=== PATIENT | female | born 1965 | race Caucasian/White ===

== ENCOUNTER 2017-06-26 17:06 | Emergency (ER) | payer MEDICARE, MEDICAID ==
[2017-06-26 17:34] VITALS: RESP 24
[2017-06-26] MEDS ORDERED: MORPHINE SULFATE 10 MG/ML SOL IV ONE (17:57)
[2017-06-26] MEDS ORDERED: ONDANSETRON HCL 4 MG/2 ML SOL IV ONE (17:59)
[2017-06-26] MEDS ORDERED: CLINDAMYCIN 150 MG/ML 900 MG in SODIUM CHLORIDE 0.9% 100 ML 100 ML IV ONE (18:16)
[2017-06-26] MEDS ORDERED: ERTAPENEM SODIUM 1 GM PDS ONE (18:27)
[2017-06-26] MEDS ORDERED: MORPHINE SULFATE 10 MG/ML SOL ONE (18:27)
[2017-06-26] MEDS ORDERED: SODIUM CHLORIDE 0.9% 1000ML 1,000 ML IV ONE (18:36)
[2017-06-26 18:45] LABS: BASOPHILS % (AUTO) 1 % (0-3); EOSINOPHILS % (AUTO) 1 % (0-9); HEMATOCRIT 34 % (35-47); MEAN CORPUSCULAR HGB CONC 30.9 gm/dl (32.0-36.0); MONOCYTES % (AUTO) 9.7 % (0-12); NEUTROPHILS % (AUTO) 78.8 % (37-80)
[2017-06-26 18:46] LABS: MEAN CORPUSCULAR VOLUME 69 fL (81-99)
[2017-06-26] MEDS ORDERED: ONDANSETRON HCL 4 MG/2 ML SOL ONE (18:47)
[2017-06-26 18:52] VITALS: TEMP 97.3
[2017-06-26 18:53] LABS: ALBUMIN 2.6 gm/dl (3.4-5.0); ALT 11 IU/L (14-63); CALCIUM 9.1 mg/dl (8.5-10.1); GLOM FILT RATE 75 mL/min (>60); POTASSIUM 4.4 mMol/L (3.5-5.1); SODIUM 132 mMol/L (136-145)
[2017-06-26] MEDS ORDERED: CLINDAMYCIN 150 MG/ML SOL ONE (18:56)
[2017-06-26 19:07] LABS: ANISOCYTOSIS MOD AMT
[2017-06-26 19:08] LABS: TARGET CELLS PRESENT
[2017-06-26] MEDS ORDERED: VANCOMYCIN HCL 500 MG PDS 1,500 MG in SODIUM CHLORIDE 0.9% 250 ML 250 ML IV SCH (19:15)
[2017-06-26] MEDS ORDERED: VANCOMYCIN HYDROCHLORIDE 500 MG PDS IV ONE (19:31)
[2017-06-26 19:40] LABS: APPEARANCE,URINE Clear; BILIRUBIN,URINE NEGATIVE (NEGATIVE); COLOR,URINE Yellow; GLUCOSE, URINE (UA) NEGATIVE (NEGATIVE); KETONES,URINE NEGATIVE (NEGATIVE); LEUKOCYTE ESTERASE ,URINE NEGATIVE (NEGATIVE); NITRATE,URINE NEGATIVE (NEGATIVE); OCCULT BLOOD,URINE TRACE LYSED (NEG-TRACE); PH,URINE 5.5
[2017-06-26 19:45] LABS: RBC,URINE 0-2 (0-3AV/HPF); WBC,URINE 0-2 (0-5AV/HPF)
[2017-06-26 20:21] VITALS: BP 106/56; PULSE 67; O2SAT 97
[2017-06-27] MEDS ORDERED: ERTAPENEM SODIUM 1 GM PDS 1 GM in SODIUM CHLORIDE 0.9% 50 ML 50 ML IV SCH (09:00)
== END 2017-06-26 20:08 | disposition short-term general hospital (02) | DRG 558 ==
LOC: ED 17:06
DX: M72.6 Necrotizing fasciitis (principal); E87.2 Acidosis; L03.115 Cellulitis of right lower limb
CPT/HCPCS: 73630; 80053; 81001; 84484; 85025; 87040; 87070; 87077; 87186; 96365; 96374; 96375; 99070; 99291; J1335; J2270; J2405; J3370; J3490

== ENCOUNTER 2017-10-05 17:53 | Emergency (ER) | payer MEDICARE, MEDICAID ==
[2017-10-05 18:38] VITALS: BP 132/82; PULSE 69; RESP 20; TEMP 97.6; O2SAT 69
[2017-10-05] MEDS ORDERED: DOXYCYCLINE 100 MG TAB PO SCH (19:00)
[2017-10-05] MEDS ORDERED: DOXYCYCLINE 100 MG TAB ONE (19:05)
[2017-10-05 19:15] LABS: BASOPHILS % (AUTO) 2 % (0-3); EOSINOPHILS % (AUTO) 2 % (0-9); HEMATOCRIT 43 % (35-47); MEAN CORPUSCULAR HGB CONC 31.3 gm/dl (32.0-36.0); MEAN CORPUSCULAR VOLUME 84 fL (81-99); MONOCYTES % (AUTO) 7.4 % (0-12); NEUTROPHILS % (AUTO) 58.9 % (37-80)
== END 2017-10-05 19:47 | disposition home or self-care (01) | DRG 607 ==
LOC: ED 17:53
DX: B37.2 Candidiasis of skin and nail (principal); L08.9 Local infection of the skin and subcutaneous tissue, unspecified; B95.8 Unspecified staphylococcus as the cause of diseases classified elsewhere
CPT/HCPCS: 85025; 87040; 99282

== ENCOUNTER 2017-10-17 13:16 | Emergency (ER) | payer MEDICARE, MEDICAID ==
[2017-10-17] MEDS ORDERED: APAP/HYDROCODONE 325/5 TAB PO ONE (13:55)
[2017-10-17] MEDS ORDERED: APAP/HYDROCODONE 325/5 TAB ONE ×2 (13:55→13:57)
[2017-10-17 14:10] VITALS: RESP 18; TEMP 98.1
[2017-10-17 14:58] VITALS: BP 129/87; PULSE 65; O2SAT 98
== END 2017-10-17 14:55 | disposition home or self-care (01) | DRG 605 ==
LOC: ED 13:16
DX: S20.219A Contusion of unspecified front wall of thorax, initial encounter (principal); M25.522 Pain in left elbow; M25.552 Pain in left hip; W19.XXXA Unspecified fall, initial encounter
CPT/HCPCS: 71010; 71100; 99283

== ENCOUNTER 2018-03-28 21:00 | Emergency (ER) | payer MEDICARE, MEDICAID ==
[2018-03-28] MEDS ORDERED: ACETAMI/HYDROCO 325/10 TAB PO ONE (21:06)
[2018-03-28] MEDS ORDERED: APAP/HYDROCODONE 325/5 TAB ONE (21:09)
[2018-03-28 21:17] VITALS: O2SAT 100
[2018-03-28] MEDS ORDERED: KETOROLAC TROMETHAMINE 30 MG/ML SOL IM ONE (22:08)
[2018-03-28] MEDS ORDERED: KETOROLAC TROMETHAMINE 30 MG/ML SOL ONE (22:09)
[2018-03-28 22:18] VITALS: RESP 20; TEMP 97.9
[2018-03-28 22:32] VITALS: BP 145/100; PULSE 93
== END 2018-03-28 22:45 | disposition home or self-care (01) | DRG 185 ==
LOC: ED 21:00
DX: S22.42XA Multiple fractures of ribs, left side, initial encounter for closed fracture (principal); W01.0XXA Fall on same level from slipping, tripping and stumbling without subsequent striking against object, initial encounter
CPT/HCPCS: 71101; 96372; 99283; J1885; A9270-GY

== ENCOUNTER 2018-05-05 15:58 | Emergency (ER) | payer MEDICARE, MEDICAID ==
[2018-05-05 16:13] VITALS: BP 135/78; PULSE 88; RESP 16; TEMP 97.9; O2SAT 98
== END 2018-05-05 16:50 | disposition home or self-care (01) | DRG 547 ==
LOC: ED 15:58
DX: M06.871 Other specified rheumatoid arthritis, right ankle and foot (principal)
CPT/HCPCS: 99282; 99283

== ENCOUNTER 2018-08-06 10:50 | Emergency (ER) | payer MEDICARE, MEDICAID ==
[2018-08-06 11:04] VITALS: TEMP 97.4
[2018-08-06] MEDS ORDERED: HYDROMORPHONE HCL 2 MG/ML SOL IM ONE (11:52)
[2018-08-06] MEDS ORDERED: HYDROMORPHONE 1 MG/ML SYRINGE ONE (12:06)
[2018-08-06 16:09] VITALS: BP 137/93; PULSE 89; RESP 20; O2SAT 98
== END 2018-08-06 12:48 | disposition home or self-care (01) | DRG 395 ==
LOC: ED 10:50
DX: K41.90 Unilateral femoral hernia, without obstruction or gangrene, not specified as recurrent (principal)
CPT/HCPCS: 96372; 99282; 99283; J1170

== ENCOUNTER 2019-01-20 19:36 | Inpatient (IN) | payer MEDICARE, MEDICAID ==
[2019-01-20] MEDS ORDERED: ALBUTEROL NEB SOL 2.5MG/3ML 1 VIAL SOL NEB ONE ×2 (19:54→20:48)
[2019-01-20] MEDS ORDERED: SOLUMEDROL 125 MG/2 ML 125 MG/2 ML PDS IV ONE (19:54)
[2019-01-20] MEDS ORDERED: SOLUMEDROL 125 MG/2 ML 125 MG/2 ML PDS ONE (20:08)
[2019-01-20] MEDS ORDERED: ALBUTEROL NEB SOL 2.5MG/3ML 1 VIAL SOL ONE ×2 (20:08→20:49)
[2019-01-20] MEDS: SODIUM CHLORIDE 0.9% FLUSH 10 ML SOL IV PRN (20:15)
[2019-01-20 20:42] LABS: BASOPHILS % (AUTO) 1 % (0-3); EOSINOPHILS % (AUTO) 6 % (0-9); HEMATOCRIT 41 % (35-47); HEMOGLOBIN 12.8 gm/dl (12.0-15.5); LYMPHOCYTES % (AUTO) 13.6 % (10-50); MEAN CORPUSCULAR HEMOGLOBIN 28.2 pg (27.0-32.0); MEAN CORPUSCULAR HGB CONC 31.6 gm/dl (32.0-36.0); MEAN CORPUSCULAR VOLUME 89 fL (81-99); MONOCYTES % (AUTO) 6.8 % (0-12); NEUTROPHILS % (AUTO) 72.9 % (37-80)
[2019-01-20 20:59] LABS: ALKALINE PHOSPHATASE 182 IU/L (46-116); ALT 25 IU/L (14-63); AST 28 IU/L (15-37); BILIRUBIN,TOTAL 0.5 mg/dl (0.2-1.0); BLOOD UREA NITROGEN 9 mg/dl (7-18); CALCIUM 9.1 mg/dl (8.5-10.1); CARBON DIOXIDE 19.6 mEq/L (21-32); CHLORIDE 104 mMol/L (98-107); CREATININE 0.73 mg/dl (0.60-1.00); GLUCOSE 95 mg/dl (74-106); POTASSIUM 4.7 mMol/L (3.5-5.1); SODIUM 138 mMol/L (136-145); TOTAL PROTEIN 8.3 gm/dl (6.4-8.2); TROP I < 0.017 ng/ml (0.000-0.056)
[2019-01-20] MEDS ORDERED: LEVOFLOXACIN 25 MG/ML 500 MG in SODIUM CHLORIDE 0.9% 100 ML 100 ML IV ONE (21:17)
[2019-01-20] MEDS ORDERED: LEVOFLOXACIN 25 MG/ML SOL IV ONE (22:00)
[2019-01-20] MEDS ORDERED: ALBUTEROL NEB SOL 2.5MG/3ML 1 VIAL SOL NEB PRN (23:08)
[2019-01-20] MEDS ORDERED: SUMATRIPTAN SUCCINATE PO PRN (23:08)
[2019-01-20] MEDS ORDERED: ALBUTEROL HFA 60 PUFF/INHALER INH PRN (23:08)
[2019-01-20] MEDS ORDERED: SOLUMEDROL 125 MG/2 ML 125 MG/2 ML PDS IV SCH (23:15)
[2019-01-21] MEDS: ALPRAZOLAM 0.25 MG TAB PO SCH ×4 (00:39→21:04)
[2019-01-21] MEDS: BUDESONIDE 0.5 MG/2 ML AMPUL.NEB INH SCH ×3 (00:39→20:48)
[2019-01-21] MEDS: PHENYTOIN SODIUM, ER 100 MG CAPSULE PO SCH ×3 (00:40→20:49)
[2019-01-21] MEDS ORDERED: KETOROLAC TROMETHAMINE 30 MG/ML SOL IV ONE (01:09)
[2019-01-21] MEDS: SOLUMEDROL 125 MG/2 ML 125 MG/2 ML PDS IV SCH ×3 (02:43→13:39)
[2019-01-21] MEDS: SODIUM CHLORIDE 0.9% FLUSH 10 ML SOL IV PRN (02:57)
[2019-01-21] MEDS ORDERED: [UNRECOGNIZED DRUG - REMARK] NS SCH (09:00)
[2019-01-21] MEDS ORDERED: ESTROGENS CONJUGATED 1.25 MG PO SCH (09:00)
[2019-01-21] MEDS: POTASSIUM CHLORIDE 10 MEQ TER PO SCH (09:25)
[2019-01-21] MEDS: PANTOPRAZOLE SODIUM 40 MG ECT PO SCH (09:26)
[2019-01-21] MEDS: AMLODIPINE 5 MG TAB PO SCH (09:26)
[2019-01-21] MEDS: ROPINIROLE HCL 1 MG TAB PO SCH ×3 (11:19→20:45)
[2019-01-21] MEDS: BUSPIRONE HCL 5 MG TAB PO SCH ×2 (12:23→20:48)
[2019-01-21] MEDS: CONJUGATED ESTROGENS 0.625 MG PO SCH (12:24)
[2019-01-21] MEDS: FERROUS GLUCONATE 324 MG TABLET PO SCH (13:29)
[2019-01-21] MEDS: FOLIC ACID 1 MG TAB PO SCH (13:29)
[2019-01-21] MEDS: FLUOXETINE HYDROCHLORIDE 10 MG CAP PO SCH (13:30)
[2019-01-21] MEDS: TRAMADOL HYDROCHLORIDE 50 MG TAB PO SCH ×2 (13:33→20:49)
[2019-01-21] MEDS: ARFORMOTEROL TARTRATE INH SCH ×2 (14:15→20:48)
[2019-01-21] MEDS: Non-Formulary Medication MISC (Umeclidinium Bromide [Incruse Ellipta] 1 PUFF) IH SCH (14:16)
[2019-01-21] MEDS: FLUTICASONE PROPIONATE SPR NAS SCH (14:16)
[2019-01-21] MEDS: PREDNISONE 20 MG TAB PO SCH ×2 (14:48→20:49)
[2019-01-21] MEDS ORDERED: LEVOFLOXACIN 500 MG TAB PO ONE (15:00)
[2019-01-22] MEDS: FOLIC ACID 1 MG TAB PO SCH (09:21)
[2019-01-22] MEDS: AMLODIPINE 5 MG TAB PO SCH (09:22)
[2019-01-22] MEDS: FERROUS GLUCONATE 324 MG TABLET PO SCH (09:22)
[2019-01-22] MEDS: TRAMADOL HYDROCHLORIDE 50 MG TAB PO SCH ×3 (09:22→21:26)
[2019-01-22] MEDS: PHENYTOIN SODIUM, ER 100 MG CAPSULE PO SCH ×2 (09:22→21:26)
[2019-01-22] MEDS: PREDNISONE 20 MG TAB PO SCH (09:22)
[2019-01-22] MEDS: PANTOPRAZOLE SODIUM 40 MG ECT PO SCH (09:22)
[2019-01-22] MEDS: POTASSIUM CHLORIDE 10 MEQ TER PO SCH (09:23)
[2019-01-22] MEDS: ROPINIROLE HCL 1 MG TAB PO SCH ×3 (09:29→21:26)
[2019-01-22] MEDS: CONJUGATED ESTROGENS 0.625 MG PO SCH (09:29)
[2019-01-22] MEDS: BUSPIRONE HCL 5 MG TAB PO SCH ×3 (09:30→21:26)
[2019-01-22] MEDS: BUDESONIDE 0.5 MG/2 ML AMPUL.NEB INH SCH ×2 (09:38→21:26)
[2019-01-22] MEDS: ARFORMOTEROL TARTRATE INH SCH ×2 (09:40→20:10)
[2019-01-22] MEDS: FLUTICASONE PROPIONATE SPR NAS SCH (09:41)
[2019-01-22] MEDS: Non-Formulary Medication MISC (Umeclidinium Bromide [Incruse Ellipta] 1 PUFF) IH SCH (09:41)
[2019-01-22] MEDS: FLUOXETINE HYDROCHLORIDE 10 MG CAP PO SCH (09:47)
[2019-01-22] MEDS: ALPRAZOLAM 0.25 MG TAB PO SCH ×3 (09:47→21:26)
[2019-01-22 16:36] VITALS: PULSE 99
[2019-01-22] MEDS ORDERED: ENOXAPARIN 40 MG SOL SC SCH (20:00)
[2019-01-23 01:54] VITALS: RESP 24; TEMP 98.3; O2SAT 92
[2019-01-23 07:39] LABS: CALCIUM 8.4 mg/dl (8.5-10.1); CARBON DIOXIDE 20.4 mEq/L (21-32); CREATININE 0.7 mg/dl (0.60-1.00); POTASSIUM 3.9 mMol/L (3.5-5.1)
[2019-01-23] MEDS ORDERED: LEVOFLOXACIN 500 MG TAB PO SCH (09:00)
[2019-01-23] MEDS: POTASSIUM CHLORIDE 10 MEQ TER PO SCH (10:06)
[2019-01-23] MEDS: FOLIC ACID 1 MG TAB PO SCH (10:07)
[2019-01-23] MEDS: AMLODIPINE 5 MG TAB PO SCH (10:07)
[2019-01-23] MEDS: FERROUS GLUCONATE 324 MG TABLET PO SCH (10:07)
[2019-01-23] MEDS: PHENYTOIN SODIUM, ER 100 MG CAPSULE PO SCH (10:07)
[2019-01-23] MEDS: PANTOPRAZOLE SODIUM 40 MG ECT PO SCH (10:07)
[2019-01-23] MEDS: PREDNISONE 20 MG TAB PO SCH (10:07)
[2019-01-23] MEDS: ARFORMOTEROL TARTRATE INH SCH (10:07)
[2019-01-23] MEDS: CONJUGATED ESTROGENS 0.625 MG PO SCH (10:08)
[2019-01-23] MEDS: TRAMADOL HYDROCHLORIDE 50 MG TAB PO SCH (10:08)
[2019-01-23] MEDS: ROPINIROLE HCL 1 MG TAB PO SCH (10:09)
[2019-01-23] MEDS: FLUTICASONE PROPIONATE SPR NAS SCH (10:09)
[2019-01-23] MEDS: BUDESONIDE 0.5 MG/2 ML AMPUL.NEB INH SCH (10:09)
[2019-01-23] MEDS: Non-Formulary Medication MISC (Umeclidinium Bromide [Incruse Ellipta] 1 PUFF) IH SCH (10:12)
[2019-01-23 10:37] VITALS: BP 128/78
[2019-01-23] MEDS: ALPRAZOLAM 0.25 MG TAB PO SCH (11:09)
[2019-01-23] MEDS: FLUOXETINE HYDROCHLORIDE 10 MG CAP PO SCH (11:09)
[2019-01-24] MEDS ORDERED: METHOTREXATE 2.5 MG TAB PO SCH (09:00)
== END 2019-01-23 13:25 | disposition home or self-care (01) | DRG 190 ==
LOC: ED 19:36 → ACUTE CARE 22:14
PROVIDERS: ADMIT Family Medicine; ATTEND Family Medicine
DX: J44.1 Chronic obstructive pulmonary disease with (acute) exacerbation (principal); J18.9 Pneumonia, unspecified organism; R06.02 Shortness of breath; R91.1 Solitary pulmonary nodule
CPT/HCPCS: 36415; 71046; 71275; 80048; 80053; 84484; 85025; 85378; 93005; 94150; 94640; 96374; 99221; 99231; 99285; J1650; J1885; J1956; J2930; J7613; Q9967; A9270-GY